=== PATIENT | male | born 1990 | race Caucasian/White ===

== ENCOUNTER 2019-07-13 07:05 | Emergency (ER) | payer BC, OTHER ==
--- NOTE | 2019-07-13 08:56 | ER Document Report ---
ED GI/ - General Chief Complaint: Abdominal Pain Stated Complaint: POSSIBLE HERNIA Time Seen by Provider: 07/13/19 08:31 Primary Care Provider: BRODY CASTANEDA MD [ACTIVE STAFF] - Follow up as needed RAJIV ELKINS MD [ACTIVE STAFF] - Follow up as needed Notes: Patient is a 28-year-old male with a history of left inguinal hernia presents to the emergency to pain with left groin pain. Patient reports that on Sunday he developed left groin pain. Patient states this was a gradual onset. Patient denies injury. Patient reports he did have a consult with [facility] on Sunday and was scheduled for surgery August 08. Patient was told if he had increased pain to return to the emergency department. Patient reports last night developing severe left groin pain. Patient is unsure if there is a bulge. Patient reports the pain is relieved with rest. Patient reports the pain is worse with moving, passing gas and when attempting to have a bowel movement. Patient reports his last bowel movement was 2 days ago. Patient reports this was a loose diarrhea without blood. Patient denies difficulty urinating. TRAVEL OUTSIDE OF THE [place] IN LAST 30 DAYS: No - Related Data Allergies/Adverse Reactions: No Known Allergies Allergy (Unverified 07/13/19 07:13) Home Medications: lexapro. topomax Past Medical History - General Information source: Patient - Social History Smoking Status: Never Smoker Frequency of alcohol use: None Drug Abuse: None Lives with: Family Family History: None Patient has suicidal ideation: No Patient has homicidal ideation: No - Past Medical History Cardiac Medical History: Reports: None Pulmonary Medical History: Reports: None EENT Medical History: Reports: None Neurological Medical History: Reports: Hx Migraine Endocrine Medical History: Reports: None Renal/ Medical History: Reports: None Malignancy Medical History: Reports None GI Medical History: Reports: None Musculoskeletal Medical History: Reports None Skin Medical History: Reports None Psychiatric Medical History: Reports: None Traumatic Medical History: Reports: None Infectious Medical History: Reports: None Surgical Hx: Negative Review of Systems - Review of Systems Constitutional: No symptoms reported EENT: No symptoms reported Cardiovascular: No symptoms reported Respiratory: No symptoms reported Gastrointestinal: See HPI Genitourinary: See HPI Male Genitourinary: No symptoms reported Musculoskeletal: No symptoms reported Skin: No symptoms reported Hematologic/Lymphatic: No symptoms reported Neurological/Psychological: No symptoms reported Physical Exam - Vital signs Vitals: Temp Pulse Resp BP Pulse Ox 97.5 F 85 20 137/91 H 99 07/13/19 07:07 07/13/19 07:07 07/13/19 07:07 07/13/19 07:07 07/13/19 07:07 Interpretation: Normal - Notes Notes: GENERAL: Well-appearing, well-nourished and in no acute distress. HEAD: Atraumatic, normocephalic. EYES: Pupils equal round and reactive to light, extraocular movements intact, sclera anicteric, conjunctiva are normal. ENT: TMs normal, nares patent, oropharynx clear without exudates. Moist mucous membranes. NECK: Normal range of motion, supple without lymphadenopathy or JVD. LUNGS: Breath sounds clear to auscultation bilaterally and equal. No wheezes rales or rhonchi. HEART: Regular rate and rhythm without murmurs, rubs or gallops. ABDOMEN: Soft, nontender, normoactive bowel sounds. No guarding, no rebound. No masses appreciated. BACK: No cervical, thoracic, lumbar midline tenderness. No saddle anesthesia, normal distal neurovascular exam. GENITOURINARY: Descended testes, fullness at the opening of the external inguinal ring to left groin. Right inguinal area unremarkable. EXTREMITIES: Normal range of motion, no pitting or edema. No clubbing or cyanosis. NEUROLOGICAL: Cranial nerves II through XII grossly intact. Normal speech, nor mal gait. PSYCH: Normal mood, normal affect. SKIN: Warm, Dry, normal turgor, no rashes or lesions noted. Course - Re-evaluation Re-evalutation: 07/13/19 08:45 I did consult with Dr. Castaneda, on-call surgicalist who will come to the emergency department for a patient evaluation. Patient is non-toxic appearing. 07/13/19 09:39 Dr. Castaneda at the bedside for evaluation. He does recommend obtaining a scrotal ultrasound, Toradol and ice pack to left groin. Will also obtain a basic labs and a urinalysis. 07/13/19 12:25 Scrotal ultrasound does show a fat-containing umbilical hernia. Upon reevaluation patient reports that the Toradol did seem to help with his discomfort. There is no change in inguinal examination, although he is less tender with palpation. 07/13/19 12:38 I did speak with Dr. Castaneda who did review the ultrasound. He reports the patient does not require emergent surgical intervention. He does recommend the patient call the office tomorrow to potentially schedule surgery to repair this hernia this week versus waiting until July. I did discuss this with the patient who verbalizes understanding and agrees with treatment plan. Will prescribe Toradol. I did inform the patient to return immediately if symptoms change, there is an increase in bulging, he develops a fever, inability to have a bowel movement, inability to urinate or uncontrolled or worsening pain. - Vital Signs Vital signs: Temp Pulse Resp BP Pulse Ox 98.0 F 61 14 123/84 98 07/13/19 12:52 07/13/19 12:52 07/13/19 12:52 07/13/19 12:52 07/13/19 12:52 - Laboratory Result Diagrams: 07/13/19 09:50 07/13/19 09:50 - Diagnostic Test Radiology reviewed: Reports reviewed Radiology results interpreted by me: 07/13/19 11:59 Scrotum Ultrasound 07/13/19 09:38 IMPRESSION: SMALL FAT CONTAINING LEFT INGUINAL HERNIA. NO EVIDENCE OF TESTICULAR MASS OR TORSION. Discharge - Discharge Clinical Impression: Inguinal hernia Qualifiers: Obstruction and gangrene presence: without obstruction or gangrene Laterality: unilateral Recurrence: recurrent Qualified Code(s): K40.91 - Unilateral inguinal hernia, without obstruction or gangrene, recurrent Hydrocele Qualifiers: Hydrocele type: unspecified Qualified Code(s): N43.3 - Hydrocele, unspecified Condition: Stable Disposition: HOME, SELF-CARE Additional Instructions: Today you are seen in the emergency department for left inguinal hernia. We did obtain a ultrasound which did show a fat-containing hernia on the left side. You were evaluated by Dr. Castaneda who is our on-call surgicalist who recommends that you call the office tomorrow. He states he will speak with Dr. Elkins in regards to having your surgery this week instead of the middle of July. Please return emergency department if your pain is uncontrolled, the area becomes more swollen, fever, discolored, if you develop abdominal pain or vomiting, inability to urinate or have a bowel movement. Please avoid straining, heavy lifting or vigorous exercise. Please drink plenty of fluids, using [id number] stool softener such as Colace. Hydrocele You have been diagnosed as having a hydrocele. The sac that holds the testicles is called the scrotum. A hydrocele is usually a painless collection of fluid in the membrane that covers the testicle(s). This may be present at or develop later on in life. The cause is usually unknown. In infants a hydrocele can be due to a miscommunication of the fluid surrounding the testes. In adults a hydrocele may form due to injury or inflammation of surrounding structures. Most hydroceles require no treatment, and usually resolve on their own. However, sometimes surgical intervention is recommended for recurrent, or for unusually large hydroceles. The surgery to fix a hydrocele is a minor procedure and usually takes about 1 and 1/2 hours. Hernia You have a hernia. A hernia forms at a weak spot in the abdominal wall. Bowel slips out of the abdominal cavity into the weak spot. Hernias tend to occur in the groin (especially in males), the fold of the thigh, the naval, or at a surgical scar. Surgical repair of the defect is usually necessary. The problem tends to get worse. It's important that you follow up as recommended. For now, you should avoid straining, heavy lifting, and vigorous exercise. Complications occur if the hernia becomes tightly stuck. You should come back immediately if the area becomes increasingly painful, swollen, or discolored, or if you develop abdominal pain and vomiting. Prescriptions: Ketorolac Tromethamine [Toradol 10 mg Tablet] 10 mg PO Q6HP PRN #21 tablet PRN Reason: Docusate Sodium [Colace] 100 mg PO DAILY #30 capsule Forms: Return to Work Referrals: RAJIV ELKINS MD [ACTIVE STAFF] - Follow up as needed BRODY CASTANEDA MD [ACTIVE STAFF] - Follow up as needed
[2019-07-13] MEDS ORDERED: KETOROLAC TROMETHAMINE INJ/PF 30 MG/1 ML SDV IM ONE (09:53)
[2019-07-13 10:29] LABS: APPEARANCE,URINE CLEAR; BILIRUBIN,URINE NEGATIVE (NEGATIVE); COLOR,URINE STRAW; GLUCOSE, URINE NEGATIVE (NEGATIVE); KETONES,URINE NEGATIVE (NEGATIVE); LEUKOCYTE ESTERASE,URINE NEGATIVE (NEGATIVE); NITRITE,URINE NEGATIVE (NEGATIVE); PROTEIN,URINE NEGATIVE (NEGATIVE); URINE SPECIFIC GRAVITY 1.008; UROBILINOGEN,URINE NEGATIVE mg/dL (<2.0)
[2019-07-13 10:32] LABS: ABSOLUTE EOSINOPHILS # (AUTO) 0.3 10^3/uL (0.0-0.6); ABSOLUTE LYMPHOCYTES (AUTO) 1.3 10^3/uL (0.5-4.7); ABSOLUTE MONOCYTES (AUTO) 0.5 10^3/uL (0.1-1.4); ABSOLUTE NEUT (AUTO) 3.6 10^3/uL (1.7-8.2); BASOPHILS % (AUTO) 0.7 % (0-2); EOSINOPHILS % (AUTO) 4.6 % (0-6); HEMATOCRIT 44.1 % (37.9-51.0); HEMOGLOBIN 15.3 g/dL (13.5-17.0); LYMPHOCYTES % (AUTO) 23.4 % (13-45); MEAN CORPUSCULAR HEMOGLOBIN 29.8 pg (27.0-33.4); MEAN CORPUSCULAR HGB CONC 34.6 g/dL (32.0-36.0); MEAN CORPUSCULAR VOLUME 86 fl (80-97); MONOCYTES % (AUTO) 9.2 % (3-13); PLATELET COUNT 195 10^3/uL (150-450); RED BLOOD COUNT 5.12 10^6/uL (4.35-5.55); RED CELL DISTRIBUTION WIDTH 12.9 % (11.5-14.0); SEGMENTED NEUTROPHILS % (AUTO) 62.1 % (42-78); TOTAL CELLS COUNTED % (AUTO) 100 %; WHITE BLOOD COUNT 5.8 10^3/uL (4.0-10.5)
[2019-07-13 10:41] LABS: ALBUMIN 4.4 g/dL (3.5-5.0); ALKALINE PHOSPHATASE 86 U/L (38-126); ANION GAP 11 (5-19); ASPARTATE AMINO TRANSFERASE 24 U/L (17-59); BILIRUBIN,DIRECT 0.1 mg/dL (0.0-0.4); BILIRUBIN,TOTAL 0.4 mg/dL (0.2-1.3); BLOOD UREA NITROGEN 11 mg/dL (7-20); CALCIUM 9.7 mg/dL (8.4-10.2); CARBON DIOXIDE 29 mmol/L (22-30); CHLORIDE 103 mmol/L (98-107); GLUCOSE 91 mg/dL (75-110); POTASSIUM 4.3 mmol/L (3.6-5.0); TOTAL PROTEIN 7.5 g/dL (6.3-8.2)
--- NOTE | 2019-07-13 11:56 | RADIOLOGY REPORT (SQ) ---
EXAM DESCRIPTION: U/S SCROTUM W/DOPPLER COMPLETED DATE/TIME: 07/13/2019 11:01 am REASON FOR STUDY: left groin/left testicular pain COMPARISON: None. TECHNIQUE: Static and realtime ceron scale imaging of the scrotum and testes. Selected color Doppler and spectral images recorded to document blood flow. LIMITATIONS: None. FINDINGS: RIGHT: TESTICLE: Normal size. Normal echotexture. Normal blood flow. No mass. EPIDIDYMIS: Normal. HYDROCELE OR VARICOCELE: Small right hydrocele HERNIA OR EXTRA-TESTICULAR MASS: No. OTHER: No other significant finding. LEFT: TESTICLE: Normal size. Normal echotexture. Normal blood flow. No mass. EPIDIDYMIS: Normal. HYDROCELE OR VARICOCELE: Small left hydrocele HERNIA OR EXTRA-TESTICULAR MASS: A left inguinal hernia is present about 2.3 x 3 cm in size, with bul ging mesenteric fat through the defect. This becomes more prominent on Valsalva. OTHER: No other significant finding. IMPRESSION: SMALL FAT CONTAINING LEFT INGUINAL HERNIA. NO EVIDENCE OF TESTICULAR MASS OR TORSION. TECHNICAL DOCUMENTATION: JOB ID: [id number] [employer]- All Rights Reserved Reading location - IP/workstation name: [facility]
[2019-07-13 12:54] VITALS: BP 123/84
--- NOTE | 2019-07-13 16:40 | PDOC CONSULTATION ---
Consultation Consult Date: 07/13/19 Attending physician:: DOM SIMMONS Provider Consulted: BRODY BREWER Consult reason:: Left inguinal pain History of Present Illness Admission Date/PCP: TIANNA HANNON MD History of Present Illness: MINA LANIER is a 28 year old male Presents emergency department via ground rescue complaining of left inguinal pain, nausea. Patient has a known left inguinal hernia, saw Dr. Mata at [facility] last week. Patient was set up for surgery mid July. Directed to come to the emergency department for increased pain. Seen in the emergency department where he was hemodynamically stable, and had some swelling of the left inguinal area. Surgery was consulted. On exam patient was found to have a left inguinal hernia with tenderness out of proportion to physical findings. Ultrasound of the left inguinal region demonstrated incarcerated omentum in the left inguinal canal, and bilateral hydroceles. Past Medical History Cardiac Medical History: Reports: None Pulmonary Medical History: Reports: None EENT Medical History: Reports: None Neurological Medical History: Reports: Migraine Endocrine Medical History: Reports: None Renal/ Medical History: Reports: None Malignancy Medical History: Reports: None GI Medical History: Reports: None Musculoskeltal Medical History: Reports: None Skin Medical History: Reports: None Psychiatric Medical History: Reports: None Traumatic Medical History: Reports: None Infectious Medical History: Reports: None Past Surgical History Past Surgical History: Reports: None Social History Information Source: Patient Lives with: Family Smoking Status: Never Smoker Electronic Cigarette use?: No Frequency of Alcohol Use: None Hx Recreational Drug Use: No Family History Family History: None Parental Family History Reviewed: No Children Family History Reviewed: No Sibling(s) Family History Reviewed.: No Medication/Allergy Home Medications: Docusate Sodium [Colace] 100 mg PO DAILY #30 capsule 07/13/19 Ketorolac Tromethamine [Toradol 10 mg Tablet] 10 mg PO Q6HP PRN #21 tablet 07/13/19 Allergies/Adverse Reactions: No Known Allergies Allergy (Unverified 07/13/19 07:13) Review of Systems Eyes: PRESENT: as per HPI. ABSENT: visual disturbances Ears: ABSENT: hearing changes Cardiovascular: ABSENT: chest pain, dyspnea on exertion, edema, orthropnea, palpitations Respiratory: ABSENT: cough, hemoptysis Gastrointestinal: PRESENT: as per HPI, other Genitourinary: PRESENT: as per HPI Musculoskeletal: ABSENT: joint swelling Integumentary: ABSENT: rash, wounds Neurological: ABSENT: abnormal gait, abnormal speech, confusion, dizziness, focal weakness, syncope Psychiatric: ABSENT: anxiety, depression, homidical ideation, suicidal ideation Physical Exam Vital Signs: Temp Pulse Resp BP Pulse Ox 98.0 F 61 14 123/84 98 07/13/19 12:52 07/13/19 12:52 07/13/19 12:52 07/13/19 12:52 07/13/19 12:52 Intake & Output 07/12/19 07/13/19 07/14/19 06:59 06:59 06:59 Weight 90.7 kg General appearance: PRESENT: mild distress Head exam: PRESENT: normocephalic Eye exam: PRESENT: EOMI Mouth exam: PRESENT: dry mucosa Neck exam: PRESENT: full ROM Respiratory exam: PRESENT: clear to auscultation kaley Cardiovascular exam: PRESENT: RRR Pulses: PRESENT: normal carotid pulses, normal radial pulses, normal femoral pulses GI/Abdominal exam: PRESENT: soft Rectal exam: PRESENT: deferred Gentrourinary exam: PRESENT: other - Bilateral descended testicles; penis circumcised; there is some fullness of the left inguinal region; careful palpation of the left cord reveals some swelling; there is some fullness at the opening to the external inguinal ring on the left side. The right side is without hernia. Extremities exam: PRESENT: full ROM Musculoskeletal exam: PRESENT: full ROM Neurological exam: PRESENT: oriented to person, oriented to place, oriented to time, oriented to situation Psychiatric exam: PRESENT: appropriate affect Results Laboratory Results: 07/13/19 09:50 07/13/19 09:50 07/13/19 07/13/19 07/13/19 09:50 09:50 09:50 WBC 5.8 RBC 5.12 Hgb 15.3 Hct 44.1 MCV 86 MCH 29.8 MCHC 34.6 RDW 12.9 Plt Count 195 Seg Neutrophils % 62.1 Sodium 142.6 Potassium 4.3 Chloride 103 Carbon Dioxide 29 Anion Gap 11 BUN 11 Creatinine 0.92 Est GFR ( Amer) > 60 Glucose 91 Calcium 9.7 Total Bilirubin 0.4 AST 24 Alkaline Phosphatase 86 Total Protein 7.5 Albumin 4.4 Urine Color STRAW Urine Appearance CLEAR Urine pH 7.0 Ur Specific Hollis 1.008 Urine Protein NEGATIVE Urine Glucose (UA) NEGATIVE Urine Ketones NEGATIVE Urine Blood NEGATIVE Urine Nitrite NEGATIVE Ur Leukocyte Esterase NEGATIVE Urine RBC (Auto) 0 Impressions: Scrotum Ultrasound 07/13/19 09:38 IMPRESSION: SMALL FAT CONTAINING LEFT INGUINAL HERNIA. NO EVIDENCE OF TESTICULAR MASS OR TORSION. 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 Patient given pain medication and felt better according to nurse practitioner. No immediate indication for surgical intervention. Recommendations: 1. Nurse practitioner related the results of the ultrasound, and my recommendation that the patient follow-up with [facility] next week with the intent of getting set up for surgery sooner than previously scheduled. Recent reportedly in agreement with plan. 2. We will discuss the plan with Dr. Mata in the next 24 hours. 3. Patient understands if his pain worsens to return to the emergency dep artment for admission and emergent surgery. (2) Hydrocele Qualifiers: Hydrocele type: unspecified Qualified Code(s): N43.3 - Hydrocele, unspecified - Time Time Spent: 30 to 50 Minutes Smoking Cessation Education: over 10 minutes Medications reviewed and adjusted accordingly: Yes Anticipated discharge: Home Within: within 24 hours
== END 2019-07-13 12:56 | disposition home or self-care (01) ==
LOC: ER 07:05
DX: K40.91 Unilateral inguinal hernia, without obstruction or gangrene, recurrent (principal); N43.3 Hydrocele, unspecified; R10.30 Lower abdominal pain, unspecified
CPT/HCPCS: 36415; 85025; 80053; 81001; 76870; 93976; J1885

== ENCOUNTER 2019-07-16 05:38 | Day surgery (SDC) | payer BC, OTHER ==
[~2019-07-16 05:38] MED LIST: CEFAZOLIN SODIUM 1 GM in DEXTROSE 5%-WATER 50 ML IV PRN; DEXTROSE 5%-LACTATED RINGERS 1,000 ML IV PRN
[2019-07-16] MEDS ORDERED: MIDAZOLAM 2 MG/2 ML INJ ONE (06:53)
[2019-07-16] MEDS ORDERED: FENTANYL CITRATE INJ/PF 100 MCG/2 ML AMPUL ONE (06:53)
[2019-07-16] MEDS ORDERED: PROPOFOL INJ 200 MG/20 ML VIAL IV ONE (06:54)
[2019-07-16] MEDS ORDERED: LIDOCAINE 2% INJ (20 MG/ML) 20 ML MDV ONE (06:55)
[2019-07-16] MEDS ORDERED: BUPIVACAINE HCL 0.25 % INJ/PF (2.5 MG/1 ML) 30 ML VIAL ONE (07:08)
[2019-07-16] MEDS ORDERED: FENTANYL CITRATE INJ/PF 100 MCG/2 ML AMPUL IV PRN ×3 (07:15)
[2019-07-16] MEDS ORDERED: MEPERIDINE HCL/PF INJ 25 MG/1 ML DISP.SYRIN IV PRN (07:15)
[2019-07-16] MEDS ORDERED: ONDANSETRON HCL INJ/PF 4 MG/2 ML SDV IV PRN (07:15)
[2019-07-16] MEDS ORDERED: DIPHENHYDRAMINE HCL 50 MG/ML VIAL IV PRN (07:15)
[2019-07-16] MEDS ORDERED: MORPHINE SULFATE 10 MG/ML INJ IV PRN (07:15)
[2019-07-16] MEDS ORDERED: OXYCODONE-ACETAMINOPHEN 5-325 MG TABLET PO PRN ×3 (07:15→09:14)
[2019-07-16] MEDS ORDERED: PROMETHAZINE HCL INJ 25 MG/1 ML VIAL IV PRN (07:15)
[2019-07-16] MEDS ORDERED: BUPIVACAINE INJ/PF LIPOSOME/PF 266 MG/20 ML SDV ONE (07:54)
--- NOTE | 2019-07-16 09:14 | Discharge Summary ---
Discharge Summary (SDC) - Discharge Final Diagnosis: Left inguinal hernia Date of Surgery: 07/16/19 Discharge Date: 07/16/19 Condition: Good Treatment or Instructions: [facility] [address], [place] [address] Discharge Instructions: Open Abdominal Procedures (Hernia, Bowel Surgery) 1.General Information: a. DO NOT DRIVE a car or operative machinery for 1-2 weeks or as long as taking Narcotic pain medication. b. DO NOT consume alcohol, tranquilizers, sleeping medication, or any non- prescribed medication for 24 hours unless approved by your doctor or as long as taking pain medication. c. DO NOT make important decisions or sign any important papers for the first 24 hours after surgery. d. When discharged home the same day as surgery have a responsible person with you the first night. 2.Activity Restriction: 8 weeks; a. Avoid heavy lifting (> 10-15 lbs), straining abdominal muscles and sports, mowing lawn, vacuum marble cleaner and bending over a lot. b. Walking is important to avoid blood clots in the legs and deep breathing can prevent pneumonia. c. If it fine to go for walks, up and down steps, and ride in a car. 3.Treatment: a. You may shower 24 hours after surgery and shower then daily is fine, but you should not bathe in a tub or go swimming for 2 weeks. b. Leave skin glue intact. It will peel off on its own. If you feel more comfortable, you may cover the wound with gauze and tape. c. Do not use oils, powders, or lotion on your incision. 4.Medications: a. You may take prescription tablets for pain if needed, one every 6 hours (_Toradol__). b. Do not take additional NSAIDs with Toradol, such as ibuprofen, advil, aleve. You may take Tylenol in addition to Toradol c. You may resume all normal medications unless a change is specified by your doctors. 5.Diet: a. If going home the same day as surgery start with clear liquids, and if you do well then advance to normal foods low inf fat and protein. Smaller portion size may be corey the first night. 6.Notify Physician If: a. Pain is not relieved by pain medication b. Persistent nausea and vomiting c. Chills, fever (above 101) d. Persistent bleeding or swelling at the operative site e. Unable to urinate for 6-8 hours f. Increased redness, drainage, or foul smelling discharge from incision 7. Follow Up Care: a. Please call our office to schedule an appointment with your doctor for 2 weeks. In the event of any postoperative problems or questions you may call our office during business hours or the On-Call surgeon through the chief hydroelectric station operator at [facility]. [facility] [phone] [facility] [phone] (Ask for the surgeon aircraft inspection record clerk) b. I understand the instructions for my postoperative care as described above and a copy has been given to me. Witness Patient/Significant Other Date Prescriptions: Ketorolac Tromethamine [Toradol 10 mg Tablet] 10 mg PO Q6HP PRN #20 tablet PRN Reason: Referrals: TIANNA HANNON MD [Primary Care Provider] - Discharge Diet: As Tolerated Discharge Activity: Balance Activity w/Rest, No Lifting Over 10 Pounds, No Lifting/Push/Pulling Report the Following to Your Physician Immediately: Nausea, Vomiting, Fever over 101 Degrees, Unusual Bleeding, Redness, Swelling, Warmth, Increased Soreness, Drainage-Foul Smelling
--- NOTE | 2019-07-16 09:14 | Operative Report ---
Operative Report DATE OF SURGERY: 07/16/19 PREOPERATIVE DIAGNOSIS: Left inguinal hernia with incarcerated omentum POSTOPERATIVE DIAGNOSIS: Same OPERATION: Left inguinal exploration, reduction of internal hernia, primary inguinal herniorrhaphy with Bard plug and overlay mesh SURGEON: BRODY BREWER 1ST HEATING FIXTURE TENDER: JEREMY DEVLIN ANESTHESIA: GA TISSUE REMOVED OR ALTERED: Lipoma of cord COMPLICATIONS: None ESTIMATED BLOOD LOSS: Scant INTRAOPERATIVE FINDINGS: See below PROCEDURE: Patient seen in the preop holding area with a left inguinal area was marked. Patient had a kind of bulge in his left inguinal canal, distally towards the upper scrotum. He was taken to the main operating room and general anesthesia was induced. Left inguinal area, genitalia were prepped and draped in sterile fashion Surgical plan and surgical timeout were conducted. Markings were made on the skin for a standard open left inguinal herniorrhaphy incision. Skin was anesthetized with quarter percent Marcaine. A 5-1/2 cm long diagonally oriented incision was made with the #10 blade, subcutaneous tissue and Ti's fascia divided with electrocautery. The external oblique aponeurosis was opened along the direction of its fibers. Superior and inferior fascial flaps were elevated. The contents of the inguinal canal were mobilized bluntly. The findings were significant for a very thickened, chronically inflamed cord and surrounding structures. We now interrogated the contents of the inguinal canal. The very thick and fibrotic peel surrounding the cord was divided. There remained a masslike effect in the soft tissues. The cord and associated vessels were gently from the thickened tissue. After manipulation and elevation, the contents therein descended proximally into the peritoneal cavity and we could visualize this as incarcerated omentum. Once this was reduced, we could see the remnant indirect hernia sac received into the peritoneal cavity. With some manipulation we able to bring the sac back into the operative field, opened it, and confirmed communication with the peritoneal cavity. Using a hemostat, we are able to retrieve the edge of the somewhat very thin sac, and using a 2-0 Vicryl suture pursestring it closed. The suture was divided, and the stump allowed to retract in the retroperitoneum. Careful inspection of the floor the inguinal canal revealed a patulous but intact direct space. We felt that a plug and overlay mesh reconstruction would be appropriate. Bard, medium plug and overlay patch were brought onto the field, checking for expiration date. The medium size plug was inverted into the for the inguinal canal, medial to the internal ring after using gentle blunt dissection to open the space. This in fact was just lateral to the inferior epigastric vessels. The plug mesh was sewn to the surrounding tissues with 0 suture x4. The overlay mesh was trimmed to appropriate configuration and sewn with approximately 9 sutures to the conjoined tendon, Poupart's ligament and the inguinal ligament laterally. The new internal ring was not too tight. We are satisfied with the repair. External oblique aponeurosis closed along direction of its fibers 2-0 Vicryl suture, Ti's fascia with 2-0 Vicryl suture skin with 3-0 Vicryl, Dermabond glue. Subcutaneous tissues anesthetized with full- strength 20 cc of Exparel. Patient tolerated the procedure well. Patient was taken recovery in stable condition. The physician medical administrative assistant, Ms. Goel, provided assistance during this case by: Assisting with retracting tissue, instillation of local anesthesia and closure of skin incisions.
[2019-07-16] MEDS ORDERED: OXYCODONE-ACETAMINOPHEN 5-325 MG TABLET ONE (10:04)
[2019-07-16] MEDS ORDERED: KETOROLAC TROMETHAMINE 60 MG/2 ML SDV ONE (10:24)
[2019-07-16] MEDS ORDERED: ONDANSETRON HCL INJ/PF 4 MG/2 ML SDV ONE (10:24)
[2019-07-16] MEDS ORDERED: SUCCINYLCHOLINE CHLORIDE INJ 200 MG/10 ML VIAL ONE (10:24)
[2019-07-16] MEDS ORDERED: ROCURONIUM BROMIDE INJ 50 MG/5 ML VIAL IV ONE (10:24)
[2019-07-16 12:36] VITALS: BP 126/79
== END 2019-07-16 11:10 | disposition home or self-care (01) ==
LOC: OROUT 05:38
PROVIDERS: ATTEND Surgery
DX: K40.30 Unilateral inguinal hernia, with obstruction, without gangrene, not specified as recurrent (principal); D17.6 Benign lipomatous neoplasm of spermatic cord
CPT/HCPCS: 88302 ×2; 00830; 49507; J2250; J3490 ×2; J0690; J1885; J3010; J0330; J2405; J7060; J2704; C9290; 830; 88304; C1781

== ENCOUNTER 2019-12-19 10:25 | Emergency (ER) | payer OTHER ==
--- NOTE | 2019-12-19 10:37 | ER Document Report ---
ED Medical Screen (RME) - General Chief Complaint: Lower Abdominal Pain Stated Complaint: LOWER ABDOMINAL PAIN Time Seen by Provider: 12/19/19 10:32 Primary Care Provider: TIANNA HANNON MD [Primary Care Provider] - Follow up as needed Mode of Arrival: Ambulatory Information source: Patient Notes: Patient presents complaining of left lower pelvic pain for the past 3 days. Patient states pain is intermittent. No nausea or vomiting, no fever. Patient denies any urinary symptoms. Patient does state that this is near the site of a previous hernia repair. Patient denies any change in appearance near his previous surgical site. I have greeted and performed a rapid initial assessment of this patient. A comprehensive ED assessment and evaluation of the patient, analysis of test results and completion of the medical decision making process will be conducted by additional ED providers. TRAVEL OUTSIDE OF THE [place] IN LAST 30 DAYS: No - Related Data Allergies/Adverse Reactions: No Known Allergies Allergy (Verified 07/16/19 05:56) Past Medical History - Past Medical History Cardiac Medical History: Denies: Hx Coronary Artery Disease, Hx Heart Attack, Hx Hypertension Pulmonary Medical History: Denies: Hx Asthma, Hx Bronchitis, Hx COPD, Hx Pneumonia Neurological Medical History: Reports: Hx Migraine. Denies: Hx Cerebrovascular Accident, Hx Seizures Musculoskeltal Medical History: Denies Hx Arthritis - Immunizations Hx Diphtheria, Pertussis, Tetanus Vaccination: Yes Physical Exam - Vital signs Vitals: Temp Pulse Resp BP Pulse Ox 98.3 F 67 18 131/82 H 98 12/19/19 10:12/19/19 10:12/19/19 10:12/19/19 10:12/19/19 10:28 - General General appearance: Appears well, Alert Notes: Left lower pelvic tenderness Course - Vital Signs Vital signs: Temp Pulse Resp BP Pulse Ox 98.3 F 67 18 131/82 H 98 12/19/19 10:12/19/19 10:12/19/19 10:12/19/19 10:12/19/19 10:28 Doctor's Discharge - Discharge Referrals: TIANNA HANNON MD [Primary Care Provider] - Follow up as needed
[2019-12-19] MEDS ORDERED: KETOROLAC TROMETHAMINE INJ/PF 30 MG/1 ML SDV IV ONE (10:56)
[2019-12-19] MEDS ORDERED: NORMAL SALINE 1000 ML 1,000 ML IV ONE (10:56)
[2019-12-19 11:00] LABS: ABSOLUTE EOSINOPHILS # (AUTO) 0.2 10^3/uL (0.0-0.6); ABSOLUTE LYMPHOCYTES (AUTO) 1.6 10^3/uL (0.5-4.7); ABSOLUTE MONOCYTES (AUTO) 0.7 10^3/uL (0.1-1.4); ABSOLUTE NEUT (AUTO) 3.4 10^3/uL (1.7-8.2); BASOPHILS % (AUTO) 0.7 % (0-2); EOSINOPHILS % (AUTO) 3.1 % (0-6); HEMATOCRIT 44.8 % (37.9-51.0); HEMOGLOBIN 15.8 g/dL (13.5-17.0); LYMPHOCYTES % (AUTO) 26.7 % (13-45); MEAN CORPUSCULAR HEMOGLOBIN 30.4 pg (27.0-33.4); MEAN CORPUSCULAR HGB CONC 35.3 g/dL (32.0-36.0); MEAN CORPUSCULAR VOLUME 86 fl (80-97); MONOCYTES % (AUTO) 11.4 % (3-13); PLATELET COUNT 220 10^3/uL (150-450); RED CELL DISTRIBUTION WIDTH 13.2 % (11.5-14.0); SEGMENTED NEUTROPHILS % (AUTO) 58.1 % (42-78); TOTAL CELLS COUNTED % (AUTO) 100 %; WHITE BLOOD COUNT 5.9 10^3/uL (4.0-10.5)
[2019-12-19 11:05] LABS: APPEARANCE,URINE CLEAR; BILIRUBIN,URINE NEGATIVE (NEGATIVE); COLOR,URINE YELLOW; GLUCOSE, URINE NEGATIVE (NEGATIVE); KETONES,URINE NEGATIVE (NEGATIVE); LEUKOCYTE ESTERASE,URINE NEGATIVE (NEGATIVE); NITRITE,URINE NEGATIVE (NEGATIVE); PROTEIN,URINE NEGATIVE (NEGATIVE); URINE SPECIFIC GRAVITY 1.026; UROBILINOGEN,URINE NEGATIVE mg/dL (<2.0)
[2019-12-19 11:18] LABS: ANION GAP 6 (5-19); BLOOD UREA NITROGEN 14 mg/dL (7-20); CALCIUM 9.7 mg/dL (8.4-10.2); CARBON DIOXIDE 32 mmol/L (22-30); CHLORIDE 100 mmol/L (98-107); GLUCOSE 84 mg/dL (75-110); POTASSIUM 4.4 mmol/L (3.6-5.0)
[2019-12-19] MEDS ORDERED: DEXTROSE 5%-LACTATED RINGERS 1,000 ML IV ONE (12:08)
--- NOTE | 2019-12-19 13:29 | RADIOLOGY REPORT (SQ) ---
EXAM DESCRIPTION: CT ABD/PELVIS NO ORAL OR IV COMPLETED DATE/TIME: 12/19/2019 12:57 pm REASON FOR STUDY: LLQ abd pain COMPARISON: None. TECHNIQUE: CT scan of the abdomen and pelvis performed without intravenous or oral contrast. Images reviewed with lung, soft tissue, and bone windows. Reconstructed coronal and sagittal MPR images revi ewed. All images stored on PACS. All CT scanners at this facility use dose modulation, iterative reconstruction, and/or weight based d osing when appropriate to reduce radiation dose to as low as reasonably achievable (ALARA). [facility]: Dose Right [facility]: CareDose [facility]: Dose Right [facility]: Teradose 4D [facility]: Smart Xspand RADIATION DOSE: CT Rad equipment meets quality standard of care and radiation dose reduction techniq ues were employed. CTDIvol: 8.7 mGy. DLP: 496 mGy-cm.mGy. LIMITATIONS: None. FINDINGS: LOWER CHEST: No significant findings. No nodules or infiltrates. NON-CONTRASTED LIVER, SPLEEN, ADRENALS: Evaluation limited by lack of IV contrast. No identified sign ificant masses. PANCREAS: No masses. No peripancreatic inflammatory changes. GALLBLADDER: No identified stones by CT criteria. No inflammatory changes to suggest cholecystitis. RIGHT KIDNEY AND URETER: No suspicious masses. Assessment limited by lack of IV contrast. No signif icant calcifications. No hydronephrosis or hydroureter. LEFT KIDNEY AND URETER: No suspicious masses. Assessment limited by lack of IV contrast. No signifi cant calcifications. No hydronephrosis or hydroureter. AORTA AND RETROPERITONEUM: No aneurysm. No retroperitoneal masses or adenopathy. BOWEL AND PERITONEAL CAVITY: There are inflammatory changes in the left lower quadrant this is adjace nt to proximal sigmoid colon. No focal abscess at this level. The colon appears normal. On image 7 3 and 74 there is a focal fact containing lesion with surrounding inflammation. Findings most likely represent epiploic appendagitis. APPENDIX: Normal. PELVIS, BLADDER, AND ABDOMINAL WALL:Images through the pelvis demonstrate inflammation anterior to th e left neurovascular bundle at the abdominal wall. There are 2 small fluid collections. These measu re approximately 1.5 x 1.5 cm in diameter. There are some small subcutaneous lymph nodes adjacent to this area of inflammation. BONES: No significant findings. OTHER: No other significant finding. IMPRESSION: CT findings are most consistent with epiploic appendagitis with inflammation extending i nto the left inguinal canal. No focal abscess. COMMENT: Quality ID # [id number]: Final reports with documentation of one or more dose reduction techniques (e.g., Automated exposure control, adjustment of the mA and/or kV according to patient size, use of iterative reconstruction technique) TECHNICAL DOCUMENTATION: JOB ID: [id number] 2010 [employer]- All Rights Reserved Reading location - IP/workstation name: [email or web address]
--- NOTE | 2019-12-19 14:35 | ER Document Report ---
Entered by KAYE HERNANDEZ SCRIBE 12/19/19 1043 Acting as scribe for:DOM SIMMONS MD ED General - General Chief Complaint: Abdominal Pain Stated Complaint: LOWER ABDOMINAL PAIN Time Seen by Provider: 12/19/19 10:32 Primary Care Provider: [facility] [Provider Group] - Follow up as needed TIANNA HANNON MD [Primary Care Provider] - Follow up as needed Mode of Arrival: Ambulatory Information source: Patient Notes: This 29 year old male patient presents to the emergency department today with complaints of abdominal pain in his left lower quadrant, which began x3 days ago. Patient states his abdominal pain is intermittent and exacerbated by straining when he urinates. Patient states the abdominal pain is located near his scar from a herniorrhaphy x5 months ago. Patient states the pain does not radiate to his back. TRAVEL OUTSIDE OF THE [place] IN LAST 30 DAYS: No - Related Data Allergies/Adverse Reactions: No Known Allergies Allergy (Verified 07/16/19 05:56) Home Medications: Lexapro. Emgality Past Medical History - General Information source: Patient - Social History Smoking Status: Never Smoker Cigarette use (# per day): No Frequency of alcohol use: None Drug Abuse: None Family History: None Patient has suicidal ideation: No Patient has homicidal ideation: No Neurological Medical History: Reports: Hx Migraine Psychiatric Medical History: Reports: Hx Anxiety Past Surgical History: Reports: Hx Herniorrhaphy - Immunizations Hx Diphtheria, Pertussis, Tetanus Vaccination: Yes Review of Systems - Review of Systems Constitutional: No symptoms reported EENT: No symptoms reported Cardiovascular: No symptoms reported Respiratory: No symptoms reported Gastrointestinal: See HPI, Abdominal pain Genitourinary: See HPI Male Genitourinary: No symptoms reported Musculoskeletal: No symptoms reported Skin: No symptoms reported Hematologic/Lymphatic: No symptoms reported Neurological/Psychological: No symptoms reported -: Yes All other systems reviewed and negative Physical Exam - Vital signs Vitals: Temp Pulse Resp BP Pulse Ox 98.3 F 67 18 131/82 H 98 12/19/19 10:28 12/19/19 10:28 12/19/19 10:28 12/19/19 10:28 12/19/19 10:28 - General General appearance: Appears well, Alert - HEENT Head: Normocephalic, Atraumatic Eyes: Normal Pupils: PERRL - Respiratory Respiratory status: No respiratory distress Chest status: Nontender Breath sounds: Normal Chest palpation: Normal - Cardiovascular Rhythm: Regular Heart sounds: Normal auscultation Murmur: No - Abdominal Inspection: Healed incision - Left inguinal herniorrhaphy. Distension: No distension Bowel sounds: Normal Tenderness: Tender - Tenderness with palpation to the left lower quadrant.. No: Guarding, Rebound - Extremities General upper extremity: Normal inspection. No: Edema General lower extremity: Normal inspection. No: Edema - Neurological Neuro grossly intact: Yes Cognition: Normal Orientation: AAOx4 - Psychological Associated symptoms: Normal affect, Normal mood - Skin Skin Temperature: Warm Skin Moisture: Dry Skin Color: Normal Course - Vital Signs Vital signs: Temp Pulse Resp BP Pulse Ox 98.3 F 67 18 131/82 H 98 12/19/19 10:28 12/19/19 10:28 12/19/19 10:28 12/19/19 10:28 12/19/19 10:28 - Laboratory Result Diagrams: 12/19/19 10:48 12/19/19 10:48 Laboratory results interpreted by me: 12/19/19 10:48 Carbon Dioxide 32 H - Diagnostic Test Radiology reviewed: Image reviewed, Reports reviewed - CT scan of the abdomen and pelvis without contrast shows findings most consistent with epiploic appen dagitis with inflammation extending into the left inguinal canal. Discharge - Discharge Clinical Impression: Epiploic appendagitis Condition: Stable Disposition: HOME, SELF-CARE Additional Instructions: Abdominal Pain There are many causes of abdominal pain. Pain can mean a serious problem requiring surgery (such as appendicitis). It can also be an innocent problem that goes away on its own (such as a viral infection). Often, time must pass to determine the cause of pain. The physician does not feel that hospitalization is necessary, at present. Things may change within the next 24 hours. Call the doctor or come back for re-examination if any problems occur, such as: (1) Pain that becomes more severe, steady, or becomes concentrated in one specific area. Also, pain that is more severe with movement or coughing. (2) Vomiting that persists or becomes more frequent. (3) Blood in the vomitus, urine, or bowel movements. Blood in the stool may have a tarry or black appearance. (4) Shaking chills or fever greater than 100 degrees F. (5) The abdomen becomes more distended or swollen. (6) Bowel movements cease. (7) Failure to improve as expected. Your CT scan shows that you most likely have epiploic appendagitis. Your white blood cell count was low and did not suggest an infectious process. Read the handout materials that were provided to you. You may look up more information about this problem on the Internet. Drink plenty of fluids and get plenty of rest. Take ibuprofen 600 mg every 8 hours for the next few days. Follow-up with [facility] next week if not improving. RETURN TO THE EMERGENCY ROOM IF ANY NEW OR WORSENING SYMPTOMS. Forms: Return to Work Referrals: TIANNA HANNON MD [Primary Care Provider] - Follow up as needed [facility] [Provider Group] - Follow up as needed I personally performed the services described in the documentation, reviewed and edited the documentation which was dictated to the scribe in my presence, and it accurately records my words and actions.
[2019-12-19 14:47] VITALS: BP 137/78
== END 2019-12-19 14:47 | disposition home or self-care (01) ==
LOC: ER 10:25
DX: K63.89 Other specified diseases of intestine (principal); R10.32 Left lower quadrant pain
CPT/HCPCS: 99284; 96361; 96374; 36415; 85025; 80048; 81001; 74176; J1885; J7121; J7030